=== PATIENT | female | born 1990 | race African-American/Black ===

== ENCOUNTER 2023-05-21 11:59 | Outpatient (CLI) | payer OTHER, MEDICAID | END 2023-05-21 23:59 | disposition critical access hospital (66) | LOC: EMS 11:59 | DX: M54.2 Cervicalgia (principal); M54.6 Pain in thoracic spine; M54.50 Low back pain, unspecified; Z91.81 History of falling; E11.9 Type 2 diabetes mellitus without complications | CPT/HCPCS: A0425; A0429 ==

== ENCOUNTER 2023-05-21 12:18 | Emergency (ER) | payer OTHER, MEDICAID ==
[2023-05-21] MEDS: KETOROLAC 30 MG/ML VIAL IM STA (12:52)
--- NOTE | 2023-05-21 13:53 | XRAY Report ---
PROCEDURE: Thoracic Spine 3V INDICATIONS: fall upper T spine pain TECHNIQUE: 3 views of the thoracic spine were acquired. COMPARISON: None. FINDINGS: Bones: No fractures or dislocations. No suspicious bony lesions. 12 pairs of ribs are noted, and a ppear intact where visualized. Soft tissues: No paravertebral stripe thickening. IMPRESSION: No acute bony abnormality. No significant degenerative change. Reviewed by: Beka Avina MD on 05/21/2023 1:51 PM PDT Approved by: Beka Avina MD on 05/21/2023 1:51 PM PDT Station ID: [id number]
--- NOTE | 2023-05-21 13:53 | XRAY Report ---
PROCEDURE: Lumbar Spine 2-3V INDICATIONS: fall mid lumbar pain TECHNIQUE: 3 views of the lumbar spine were acquired. COMPARISON: None. FINDINGS: Bones: 5 [id number] vertebrae are present. There is normal bony alignment. No vertebral body compression fractures. No suspicious bony lesions. Soft tissues: Overlying bowel gas pattern is normal. No suspicious soft tissue calcifications. IMPRESSION: No acute compression fracture or spondylolisthesis in lumbar spine. Reviewed by: Beka Avina MD on 05/21/2023 1:51 PM PDT Approved by: Beka Avina MD on 05/21/2023 1:51 PM PDT Station ID: [id number]
--- NOTE | 2023-05-21 14:12 | ED Physician Documentation ---
PD HPI BACK PAIN - Stated complaint Stated Complaint: BACK PX - Chief complaint Chief Complaint: Back Pain - History obtained from History obtained from: Patient - History of Present Illness Timing - onset: How many weeks ago (4) Timing - duration: Days (4) Timing - details: Abrupt onset, Still present Location: Upper, Lower Quality: Pain, Spasm, Sharp, Similar to prior episodes Associated symptoms: No: Fever, Weakness, Numbness, Incontinent of urine, Unable to urinate, Hematuria, Incontinent of stool Improves with: Rest Worsened by: Movement, Lifting, Twisting, Palpation Contributing factors: Other (fall at work 1 month ago) Similar symptoms before: Diagnosis (back strain) Recently seen: Not recently seen - Additional information Additional information: Gita Beal is a 32-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 The patient had to support herself and catch the baby. The patient struck her head and shoulder and complains of increased back pain since then. She has spent some time in the psych rai since that time. And she has not been going to work. She comes in now ready to address the pain in her back. Review of Systems Constitutional: denies: Fever Eyes: denies: Decreased vision Ears: denies: Ear pain Nose: denies: Rhinorrhea / runny nose, Congestion Throat: denies: Sore throat Cardiac: denies: Chest pain / pressure Respiratory: denies: Dyspnea, Cough GI: denies: Abdominal Pain, Nausea, Vomiting, Constipation, Diarrhea : denies: Dysuria, Frequency Skin: denies: Rash Musculoskeletal: reports: Back pain. denies: Neck pain, Extremity swelling Neurologic: denies: Generalized weakness, Focal weakness, Numbness PD PAST MEDICAL HISTORY - Past Medical History Psych: Depression Other Past Medical History: Chronic back pain - Past Surgical History Past Surgical History: No - Present Medications Home Medications: Ambulatory Orders Medication Instructions Recorded Confirmed Cyclobenzaprine [Flexeril] 10 mg PO TID PRN #20 tablet 05/21/23 - Allergies Allergies/Adverse Reactions: Allergies Allergy/AdvReac Type Severity Reaction Status Date / Time No Known Drug Allergies Allergy Verified 05/21/23 12:28 - Social History Does the pt smoke?: No Smoking Status: Never smoker PD ED PE NORMAL - Vitals Vital signs reviewed: Yes (tachy and hypertensive) - General General: Alert and oriented X 3, No acute distress, Well developed/nourished - HEENT HEENT: Atraumatic, PERRL, EOMI - Neck Neck: Supple, no meningeal sign, No bony TTP - Cardiac Cardiac: RRR, No murmur - Respiratory Respiratory: No respiratory distress, Clear bilaterally - Abdomen Abdomen: Normal bowel sounds, Soft, Non tender, Non distended, No organomegaly - Back Back: No CVA TTP, Other (mild tenderness to the mid lumbar spine centrally and to the upper thoracic spine centrally. No step off or crepitance. ) - Derm Derm: Normal color, Warm and dry, No rash - Extremities Extremities: No deformity, No edema - Neuro Neuro: Alert and oriented X 3, artist scientific 2-12 intact, No motor deficit, No sensory deficit, Normal speech Eye Opening: Spontaneous Motor: Obeys Commands Verbal: Oriented GCS Score: 15 - Psych Psych: Normal mood, Normal affect Results - Vitals Vitals: Vital Signs - 24 hr 05/21/23 05/21/23 12:20 14:42 Temperature 36.4 C L Heart Rate 114 H 101 H Respiratory 16 18 Rate Blood Pressure 143/80 H 128/80 O2 Saturation 100 98 Oxygen O2 Source Room air - Rads (name of study) lumbar spine Relevant Findings:: Prelim report reviewed (Impression: No acute compression fracture or spondylolisthesis in the lumbar spine) thoracic spine Relevant Findings:: Prelim report reviewed (Impression: No acute bony abnormality. No significant degenerative change.), EMP independent interpretation of test PD Medical Decision Making - ED course Complexity details: reviewed old records, reviewed results, re-evaluated patient, considered differential, d/w patient ED course: 32-year-old female with a fall at work 1 month ago has worse back pain than normal and this has been persistent. She is here today to address her back pain. We obtained plain films of her lumbar and thoracic spine without evidence of fracture. She is not having radicular symptoms. She is having pain in the mid and upper back. She received an injection of 30 mg of Toradol with improvement in her pain. She has been taking Tylenol at home without as good of quality of pain relief. We will place the patient on a short course of muscle relaxant and encouraged her to use ibuprofen for pain control. Departure - Departure Disposition: 01 Home, Self Care Clinical Impression: Strain of thoracic back region Condition: Stable Instructions: ED Back Care Tips, ED Sprain Strain Lumbar Follow-Up: Your, doctor [Other] Prescriptions: Cyclobenzaprine [Flexeril] 10 mg PO TID PRN #20 tablet PRN Reason: Spasms Comments: Gita, today it looks like you have strained your back from this fall 1 month ago and my recommendation for treatment is to use some ibuprofen 600 mg every 8 hours as needed for the pain to be certain to take this with food as it does irritate the lining of everyone stomach. You can have some additional pain relief with adding Tylenol to this. These medications are metabolized differently and work on different principles and there ability to control pain is additive. I have E scribed some Flexeril for you to take as a muscle relaxant and this has been E scribed to the [facility] in [place]. Follow-up physical therapy is indicated for this type of back injury. Discharge Date/Time: 05/21/23 14:45
[2023-05-21 14:49] VITALS: BP 128/80; O2SAT 98
== END 2023-05-21 14:45 | disposition home or self-care (01) ==
LOC: ED 12:18
DX: S29.012A Strain of muscle and tendon of back wall of thorax, initial encounter (principal); W03.XXXA Other fall on same level due to collision with another person, initial encounter
CPT/HCPCS: 1040M; 96372; 99283; 99284